=== PATIENT | male | born 1970 | race Caucasian/White ===

== ENCOUNTER 2023-05-13 06:43 | Day surgery (SDC) | payer OTHER ==
[~2023-05-13] VITALS: Ht 170.2 cm; Wt 103.4 kg
[2023-05-13] MEDS ORDERED: fentaNYL citrate 0.05 MG/ML VIAL ONE (07:48)
[2023-05-13] MEDS ORDERED: LIDOCAINE 2% 100 MG/5 ML UJET TP ONE ×2 (07:49→10:15)
[2023-05-13] MEDS: fentaNYL citrate 0.05 MG/ML VIAL IVP ONE (08:23)
== END 2023-05-13 10:35 | disposition home or self-care (01) ==
LOC: MDS 06:43 → MMU 06:43 → MDS 10:35
PROVIDERS: ATTEND Internal Medicine Gastroenterology
DX: Z12.11 Encounter for screening for malignant neoplasm of colon (principal); K57.30 Diverticulosis of large intestine without perforation or abscess without bleeding; Z86.16 Personal history of COVID-19; E66.9 Obesity, unspecified; Z68.35 Body mass index [BMI] 35.0-35.9, adult; Z79.899 Other long term (current) drug therapy; Z98.890 Other specified postprocedural states
CPT/HCPCS: 45385; J3010